=== PATIENT | male | born 1990 | race Caucasian/White ===

== ENCOUNTER 2016-08-03 08:53 | Inpatient (IN) | payer OTHER ==
[2016-08-03 09:14] VITALS: BMI 24.0
--- NOTE | 2016-08-03 09:45 | PN ---
Xital Signs Vital Signs: Vital Signs - 24 hr 08/03/16 09:12 Temperature 97.7 F Pulse Rate 101 H Respiratory 18 Rate Blood Pressure 125/71 COWS - Scale Resting Pulse: 2= [place] 101-120 Sweatin= Chills/Flushing Restless Observation: 1= Difficult to Sit Still Pupil Size: 0= Normal to Room Light Bone or Joint Aches: 2= Severe Diffuse Aches Runny Nose/ Eye Tearin= Runny Nose/Eyes GI Upset > 30mins: 2= Nausea/Diarrhea Tremor Observation: 2= Slight Tremor Visible Yawning Observation: 1= 1-2x During Session Anxiety or Irritability: 2=Irritable/Anxious Goose Flesh Skin: 0=Smooth Skin COWS Score: 15 Medical/Surgical History - Patient Medical History Hx Anemia: No Hx Asthma: No Hx Chronic Obstructive Pulmonary Disease (COPD): No Hx Cancer: No Hx Cardiac Disorders: No Hx Congestive Heart Failure: No Hx Hypertension: No Hx Hypercholesterolemia: No Hx Pacemaker: No HX Cerebrovascular Accident: No Hx Seizures: No Hx Dementia: No Hx Diabetes: No Hx Gastrointestinal Disorders: No Hx Liver Disease: No Hx Genitourinary Disorders: No Hx Sexually Transmitted Disorders: No Hx Renal Disease (ESRD): No Hx Thyroid Disease: No Hx Human Immunodeficiency Virus (HIV): No (2012 last ) Hx Hepatitis C: No Hx Depression: No Hx Suicide Attempt: No Hx Bipolar Disorder: No Hx Schizophrenia: No - Patient Surgical History Past Surgical History: Yes Hx Orthopedic Surgery: Yes (RECONSTRUCTION LT [id number]) BHS Breath Alcohol Content Breath Alcohol Content: 0 Urine Drug Screen - Results Drug Screen Negative: No Urine Drug Screen Results: THC-Marijuana, OPI-Opiates, MDMA-Ecstasy
--- NOTE | 2016-08-03 09:52 | HP ---
COWS - Scale Resting Pulse: 2= [place] 101-120 Sweatin= Chills/Flushing Restless Observation: 1= Difficult to Sit Still Pupil Size: 0= Normal to Room Light Bone or Joint Aches: 2= Severe Diffuse Aches Runny Nose/ Eye Tearin= Runny Nose/Eyes GI Upset > 30mins: 2= Nausea/Diarrhea Tremor Observation: 2= Slight Tremor Visible Yawning Observation: 1= 1-2x During Session Anxiety or Irritability: 2=Irritable/Anxious Goose Flesh Skin: 0=Smooth Skin COWS Score: 15 Admission ROS S - HPI Chief Complaint: "My life has become unmanageable because I have been using." Allergies/Adverse Reactions: Allergies Allergy/AdvReac Type Severity Reaction Status Date / Time No Known Allergies Allergy Verified 08/03/16 09:47 History of Present Illness: Pt. is a 26 YO male here to detox from Heroin. Pt.'s last Detox admission to [facility] was in 2013. Pt. also reports intermittently using alcohol and Marijuana. Exam Limitations: No Limitations - Ebola screening Have you traveled outside of the country in the last 21 days: No Have you had contact with anyone from an Ebola affected area: No Have you been sick,other than usual withdrawal symptoms: No Do you have a fever: No - Review of Systems Constitutional: Chills, Diaphoresis, Fever, Loss of Appetite, Malaise, Night Sweats, Changes in sleep, Unintentional Wgt. Loss (Pt. has lost 10-15 lbs. over the last 6 months.) EENT: reports: Tearing, Nose Congestion, Sinus Pressure Respiratory: reports: No Symptoms reported Cardiac: reports: No Symptoms Reported GI: reports: Diarrhea, Poor Appetite : reports: No Symptoms Reported Musculoskeletal: reports: Muscle Pain, Joint Stiffness Integumentary: reports: No Symptoms Reported Neuro: reports: Tremors Endocrine: reports: No Symptoms Reported Hematology: reports: No Symptoms Reported Psychiatric: reports: Judgement Intact, Mood/Affect Appropiate, Orientated x3, Anxious, Depressed Other Systems: Reviewed and Negative Patient History - Patient Medical History Hx Anemia: No Hx Asthma: No Hx Chronic Obstructive Pulmonary Disease (COPD): No Hx Cancer: No Hx Cardiac Disorders: No Hx Congestive Heart Failure: No Hx Hypertension: No Hx Hypercholesterolemia: No Hx Pacemaker: No HX Cerebrovascular Accident: No Hx Seizures: No Hx Dementia: No Hx Diabetes: No Hx Gastrointestinal Disorders: No Hx Liver Disease: No Hx Genitourinary Disorders: No Hx Sexually Transmitted Disorders: No Hx Renal Disease (ESRD): No Hx Thyroid Disease: No Hx Human Immunodeficiency Virus (HIV): No (Last Tested: NEGATIVE.) Hx Hepatitis C: No (Last Tested: NEGATIVE.) Hx Depression: Yes (No previous Treatment or Counseling.) Hx Suicide Attempt: No (PATIENT DENIES CURRENT SI / HI.) Hx Bipolar Disorder: No Hx Schizophrenia: No - Patient Surgical History Past Surgical History: Yes Hx Neurologic Surgery: No Hx Cataract Extraction: No Hx Cardiac Surgery: No Hx Lung Surgery: No Hx Breast Surgery: No Hx Breast Biopsy: No Hx Abdominal Surgery: No Hx Appendectomy: No Hx Cholecystectomy: No Hx Genitourinary Surgery: No Hx Orthopedic Surgery: Yes (RECONSTRUCTION LT ORFHS=[id number]) Anesthesia Reaction: No - PPD History Previous Implant?: Yes Documented Results: Negative w/o proof Implanted On Prior [facility] Admission?: Yes Date: 02/28/14 Results: 0 mm PPD to be Administered?: Yes - Reproductive History Patient is a Female of Child Bearing Age (11 -55 yrs old): No (PATIENT IS MALE.) - Smoking Cessation Smoking history: Current every day smoker Have you smoked in the past 12 months: Yes Aproximately how many cigarettes per day: 10 Cigars Per Day: 0 Hx Chewing Tobacco Use: No Initiated information on smoking cessation: Yes 'Breaking Loose' booklet given: 08/03/16 (GIVEN ON UNIT.) - Substance & Tx. History Hx Alcohol Use: Yes (Intermittently.) Hx Substance Use: Yes Substance Use Type: Heroin, Marijuana Hx Substance Use Treatment: Yes (Previous Detox admission at [facility] in 2013.) - Substances Abused Heroin Route: Injection Frequency: Daily Amount used: 5 - 10 BAGS. Age of first use: 23 Date of Last Use: 08/02/16 Alcohol Route: Oral Frequency: 3-6 times per week Amount used: 1 PINT LIQUOR. Age of first use: 19 Date of Last Use: 08/01/16 Marijuana/Hashish Route: Smoking Frequency: 1-2 times per week Amount used: 1 GRAM. Age of first use: 17 Date of Last Use: 07/27/16 Family Disease History - Family Disease History Family History: Denies Admission Physical Exam BHS - Vital Signs Vital Signs: Vital Signs - 24 hr 08/03/16 09:12 Temperature 97.7 F Pulse Rate 101 H Respiratory 18 Rate Blood Pressure 125/71 - Physical General Appearance: Yes: Nourished, Appropriately Dressed, Mild Distress, Tremorous, Sweating, Anxious HEENTM: Yes: Hearing grossly Normal, Normocephalic, Normal Voice, TERRELL, Pharynx Normal Respiratory: Yes: Chest Non-Tender, Lungs Clear, No Respiratory Distress Neck: Yes: No masses,lesions,Nodules, Supple, Trachea in good position Breast: Yes: Breast Exam Deferred Cardiology: Yes: Regular Rhythm, Regular Rate, S1, S2 Abdominal: Yes: Normal Bowel Sounds, Non Tender, Flat, Soft Genitourinary: Yes: Within Normal Limits Back: Yes: Normal Inspection Musculoskeletal: Yes: full range of Motion, Gait Steady Extremities: Yes: Normal Range of Motion, Tremors Neurological: Yes: Fully Oriented, Alert, Normal Mood/Affect, Normal Response Integumentary: Yes: Normal Color, Warm, Track Tom (Noted in Cubital Creases of Bilateral arms. No signs of Infection noted) Lymphatic: Yes: Within Normal Limits - Diagnostic (1) Nicotine dependence Current Visit: Yes Status: Chronic Qualifiers: Nicotine product type: cigarettes Substance use status: uncomplicated Qualified Code(s): F17.210 - Nicotine dependence, cigarettes, uncomplicated (2) Opioid dependence with withdrawal Current Visit: Yes Status: Acute (3) Alcohol use Current Visit: Yes Status: Acute (4) Cannabis dependence, uncomplicated Current Visit: Yes Status: Acute Cleared for Admission [facility] - Detox or Rehab [facility] Level of Care: Medically Managed Detox Regimen/Protocol: Methadone [facility] Breath Alcohol Content Breath Alcohol Content: 0 Urine Drug Screen - Results Drug Screen Negative: No Urine Drug Screen Results: THC-Marijuana, OPI-Opiates, MDMA-Ecstasy
[2016-08-03] MEDS ORDERED: ACETAMINOPHEN 325 MG TABLET (FP) PO PRN (10:24)
[2016-08-03] MEDS ORDERED: NICOTINE POLACRILEX 2 MG GUM BUC PRN (10:24)
[2016-08-03] MEDS ORDERED: guaiFENesin/D-METHORPHAN HB 10 ML UNIT-DOSE CUPS PO PRN (10:24)
[2016-08-03] MEDS ORDERED: P-EPHED 60MG/TRIPROLIDI 2.5MG TABLET PO PRN (10:24)
[2016-08-03] MEDS ORDERED: IBUPROFEN 400 MG TABLET (FP) PO PRN (10:24)
[2016-08-03] MEDS ORDERED: MAGNESIUM HYDROX 2400MG/30ML ORAL SUSPENSION 30 ML CUP PO PRN (10:24)
[2016-08-03] MEDS ORDERED: MAG HYDROX/AL HYDROX/SIMETH 30 ML UNIT-DOSE CUP PO PRN (10:24)
[2016-08-03] MEDS ORDERED: LOPERAMIDE HCL 2 MG CAPSULE PO PRN (10:24)
[2016-08-03] MEDS ORDERED: MAGNESIUM CITRATE 300 ML BOTTLE PO PRN (10:24)
[2016-08-03] MEDS ORDERED: diphenhydrAMINE HCL 50 MG CAPSULE PO PRN (10:24)
[2016-08-03] MEDS ORDERED: MENTHOL/PHENOL 1 EACH UD MM PRN (10:24)
[2016-08-03] MEDS ORDERED: METHADONE HCL 10 MG TABLET (FOR DETOX USE ONLY) PO ONE ×2 (10:24→23:00)
[2016-08-03] MEDS ORDERED: BACITRACIN 30 GM TUBE TOPICAL OINTMENT TP SCH (10:45)
[2016-08-03] MEDS ORDERED: BACITRACIN 0.9 GM PACKET ONE (12:02)
[2016-08-03] MEDS: diazePAM 5 MG TABLET PO PRN ×3 (12:26→22:39)
[2016-08-03] MEDS: NICOTINE 14 MG/24 HOURS TOPICAL PATCH TD SCH (12:27)
[2016-08-03 19:22] LABS: URINE APPEARANCE CLEAR; URINE BILIRUBIN NEGATIVE (NEGATIVE); URINE COLOR YELLOW; URINE GLUCOSE (UA) NEGATIVE (NEGATIVE); URINE KETONE NEGATIVE (NEGATIVE); URINE LEUK ESTERASE NEGATIVE (NEGATIVE); URINE NITRITE NEGATIVE (NEGATIVE); URINE PROTEIN NEGATIVE (NEGATIVE); URINE UROBILINOGEN NEGATIVE E.U./dl (0.2-1.0)
[2016-08-03 19:42] LABS: URINE BLOOD 1+ (NEGATIVE)
[2016-08-03 19:44] LABS: URINE BACTERIA RARE /hpf (NONE SEEN); URINE MUCUS RARE; URINE RBC 13 /hpf (0-3); URINE WBC 1 /hpf (3-5)
[2016-08-03] MEDS: BACITRACIN 0.9 GM PACKET TP SCH (22:37)
[2016-08-03] MEDS: THIAMINE HCL 100 MG TABLET (FP) PO SCH (22:37)
[2016-08-04] MEDS: hydrOXYzine PAMOATE 50 MG CAPSULE (FP) PO PRN (02:15)
[2016-08-04] MEDS: diazePAM 5 MG TABLET PO PRN ×5 (05:35→23:01)
[2016-08-04 09:47] LABS: MCH 29.4 pg (25.7-33.7); MCHC 33.3 g/dl (32.0-35.9); MEAN CELL VOLUME 88.3 fl (80-96); MEAN PLT VOLUME 8.5 fl (7.5-11.1); PLATELET COUNT 208 K/MM3 (134-434); RDW 13.9 % (11.9-15.9); WHITE BLOOD COUNT 4.9 K/mm3 (4.0-10.0)
[2016-08-04] MEDS ORDERED: ONDANSETRON *ODT* 4 MG TABLET SL PRN (09:59)
[2016-08-04] MEDS ORDERED: METHADONE HCL 10 MG TABLET (FOR DETOX USE ONLY) PO ONE (10:00)
[2016-08-04 10:19] LABS: ALBUMIN 3.7 g/dl (3.4-5.0); ALK PHOS 107 U/L (45-117); ANION GAP 9 (8-16); BILIRUBIN,TOTAL 0.4 mg/dL (0.2-1.0); CALCIUM 9.1 mg/dL (8.5-10.1); CO2 28 mmol/L (21-32); CREATININE 0.8 mg/dL (0.7-1.3); GLUCOSE,RANDOM 76 mg/dL (74-106); SGOT/AST 15 U/L (15-37); SGPT/ALT 19 U/L (12-78); TOT PROT 7.1 g/dl (6.4-8.2)
[2016-08-04] MEDS ORDERED: ONDANSETRON *ODT* 4 MG TABLET SL ONE (10:23)
[2016-08-04] MEDS: PRENATAL VITAMINS W/ FOLIC ACID TABLET (FP) PO SCH (10:29)
[2016-08-04] MEDS: NICOTINE 14 MG/24 HOURS TOPICAL PATCH TD SCH (10:29)
[2016-08-04] MEDS: BACITRACIN 0.9 GM PACKET TP SCH ×2 (10:29→22:10)
--- NOTE | 2016-08-04 10:38 | EKG ---
Test Reason : Blood Pressure : / mmHG Vent. Rate : 077 BPM Atrial Rate : 077 BPM P-R Int : 142 ms QRS Dur : 106 ms QT Int : 382 ms P-R-T Axes : 062 077 043 degrees QTc Int : 432 ms NORMAL SINUS RHYTHM NORMAL ECG NO PREVIOUS ECGS AVAILABLE Confirmed by ISIDRO VELÁSQUEZ MD ([id number]) on 08/04/2016 10:38:16 AM Referred By: Confirmed By:ISIDRO VELÁSQUEZ MD
--- NOTE | 2016-08-04 11:16 | PN ---
BHS COWS - Scale Resting Pulse: 0= [place] 80 or Below Sweatin=Flushed/Facial Moisture Restless Observation: 1= Difficult to Sit Still Pupil Size: 0= Normal to Room Light Bone or Joint Aches: 2= Severe Diffuse Aches Runny Nose/ Eye Tearin= Runny Nose/Eyes GI Upset > 30mins: 2= Nausea/Diarrhea Tremor Observation of Outstretched Hands: 2= Slight Tremor Visible Yawning Observation: 1= 1-2x During Session Anxiety or Irritability: 2=Irritable/Anxious Goose Flesh Skin: 0=Smooth Skin COWS Score: 14 BHS Progress Note (SOAP) Subjective: SWEATING,INTERRUPTED SLEEP,RESTLESS,TREMORS,ANXIETY,MUSCLE ACHES/SPASM Objective: 08/04/16 11:15 Vital Signs - 8 hr 08/04/16 08/04/16 08/04/16 03:45 06:11 09:39 Temperature 97.0 F L 97.9 F Pulse Rate 63 78 Respiratory 18 16 18 Rate Blood Pressure 112/72 107/69 Laboratory Tests 08/03/16 08/04/16 08/04/16 18:50 06:30 06:30 WBC 4.9 RBC 4.61 Hgb 13.6 Hct 40.8 MCV 88.3 MCHC 33.3 RDW 13.9 Plt Count 208 MPV 8.5 Sodium 141 Potassium 4.6 Chloride 104 Carbon Dioxide 28 Anion Gap 9 BUN 12 Creatinine 0.8 D Creat Clearance w eGFR > 60 Random Glucose 76 D Calcium 9.1 Total Bilirubin 0.4 D AST 15 D ALT 19 Alkaline Phosphatase 107 Total Protein 7.1 Albumin 3.7 Urine Color Yellow Urine Appearance Clear Urine pH 6.0 Ur Specific [place] 1.030 Urine Protein Negative Urine Glucose (UA) Negative Urine Ketones Negative Urine Blood 1+ H Urine Nitrite Negative Urine Bilirubin Negative Urine Urobilinogen Negative Ur Leukocyte Esterase Negative Urine RBC 13 Urine WBC 1 Urine Bacteria Rare Urine Mucus Rare LABS NOTED Assessment: 08/04/16 11:15 WITHDRAWAL SX. Plan: CONTINUE DETOX
[2016-08-04 12:14] LABS: HIV 1 & 2 AB NEGATIVE; HIV 1 AGp24 NEGATIVE
--- NOTE | 2016-08-04 15:28 | CONSULT ---
[facility] Psychiatric Consult - Data Date of interview: 08/04/16 Admission source: [facility] Identifying data: Readmission to [facility] for this 26 y/o male seeking detox treatment on for heroin and marijuana dependence.Patient is single without children,domiciled,unemployed and reportedly deprived of any source of income. Substance Abuse History: - Smoking Cessation. Smoking history: Current every day smoker. Have you smoked in the past 12 months: Yes. Aproximately how many cigarettes per day: 10. Cigars Per Day: 0. Hx Chewing Tobacco Use: No. Initiated information on smoking cessation: Yes. 'Breaking Loose' booklet given : 08/03/16 (GIVEN ON UNIT.). - Substance & Tx. History. Hx Alcohol Use: Yes ( Intermittently.). Hx Substance Use: Yes. Substance Use Type: Heroin, Marijuana. Hx Substance Use Treatment: Yes (Previous Detox admission at [facility] in 2013.). - Substances Abused. Heroin. Route: Injection. Frequency: Daily. Amount used: 5 - 10 BAGS. Age of first use: 23. Date of Last Use: . Alcohol. Route: Oral. Frequency: 3-6 times per week. Amount used: 1 PINT LIQUOR. Age of first use: 19. Date of Last Use: 08/01/16. Marijuana /Hashish. Route: Smoking. Frequency: 1-2 times per week. Amount used: 1 GRAM. Age of first use: 17. Date of Last Use: 07/27/16. Discussed with patient in this interview.He aknowledges this pattern of substance use. Medical History: Consistent with surgical reconstruction of left thumb (2009). Psychiatric History: Patient denies. Physical/Sexual Abuse/Trauma History: Patient denies. Additional Comment: Urine Drug Screen Results: THC-Marijuana, OPI-Opiates, MDMA- Ecstasy.Noted. Mental Status Exam - Mental Status Exam Alert and Oriented to: Time, Place, Person Cognitive Function: Good Patient Appearance: Well Groomed Mood: Hopeful, Euthymic Affect: Appropriate, Normal Range Patient Behavior: Fatigued, Talkative, Appropriate, Cooperative Speech Pattern: Clear, Appropriate Voice Loudness: Normal Thought Process: Goal Oriented Thought Disorder: Not Present Hallucinations: Denies Suicidal Ideation: Denies Homicidal Ideation: Denies Insight/Judgement: Poor Sleep: Poorly, Difficulty falling asleep Appetite: Good Muscle strength/Tone: Normal Gait/Station: Normal Psychiatric Findings - Problem List ([place] 1, 2,3) (1) Alcohol dependence Current Visit: Yes Status: Acute (2) Cannabis dependence, uncomplicated Current Visit: Yes Status: Acute (3) Opioid dependence with withdrawal Current Visit: Yes Status: Acute (4) Nicotine dependence Current Visit: Yes Status: Acute Qualifiers: Nicotine product type: cigarettes Substance use status: uncomplicated Qualified Code(s): F17.210 - Nicotine dependence, cigarettes, uncomplicated (5) MDMA abuse Current Visit: Yes Status: Acute (6) Insomnia Current Visit: Yes Status: Acute - Initial Treatment Plan Initial Treatment Plan: Psychoeducation.Detoxification.Zolpidem 10 mg po hs prn.Patient is made aware of the risk of parasomnias.He agrees with this plan.Observation.
[2016-08-04] MEDS ORDERED: hydrOXYzine PAMOATE 50 MG CAPSULE (FP) PO SCH (22:00)
[2016-08-04] MEDS: ZOLPIDEM TARTRATE 10 MG TABLET (PARK CARE ONLY) PO PRN (22:10)
[2016-08-04] MEDS: THIAMINE HCL 100 MG TABLET (FP) PO SCH (22:11)
[2016-08-05] MEDS: hydrOXYzine PAMOATE 50 MG CAPSULE (FP) PO PRN ×2 (02:15→14:10)
[2016-08-05] MEDS: diazePAM 5 MG TABLET PO PRN ×4 (05:52→18:09)
[2016-08-05] MEDS ORDERED: METHADONE HCL 5 MG TABLET (FOR DETOX USE ONLY) PO ONE (10:00)
[2016-08-05] MEDS: BACITRACIN 0.9 GM PACKET TP SCH ×2 (10:06→22:07)
[2016-08-05] MEDS: PRENATAL VITAMINS W/ FOLIC ACID TABLET (FP) PO SCH (10:06)
[2016-08-05] MEDS: NICOTINE 14 MG/24 HOURS TOPICAL PATCH TD SCH (10:06)
--- NOTE | 2016-08-05 10:25 | PN ---
BHS COWS - Scale Resting Pulse: 0= [place] 80 or Below Sweatin=Flushed/Facial Moisture Restless Observation: 1= Difficult to Sit Still Pupil Size: 0= Normal to Room Light Bone or Joint Aches: 2= Severe Diffuse Aches GI Upset > 30mins: 2= Nausea/Diarrhea Tremor Observation of Outstretched Hands: 2= Slight Tremor Visible Yawning Observation: 1= 1-2x During Session Anxiety or Irritability: 2=Irritable/Anxious Goose Flesh Skin: 0=Smooth Skin BHS Progress Note (SOAP) Subjective: anxiety,sweating,interrupted sleep,muscle aches/spasm Objective: 08/05/16 10:24 Vital Signs - 8 hr 08/05/16 08/05/16 03:30 06:21 Temperature 97.6 F Pulse Rate 67 Respiratory 18 16 Rate Blood Pressure 109/70 Laboratory Tests 08/03/16 08/04/16 08/04/16 18:50 06:30 06:30 WBC 4.9 RBC 4.61 Hgb 13.6 Hct 40.8 MCV 88.3 MCHC 33.3 RDW 13.9 Plt Count 208 MPV 8.5 Sodium 141 Potassium 4.6 Chloride 104 Carbon Dioxide 28 Anion Gap 9 BUN 12 Creatinine 0.8 D Creat Clearance w eGFR > 60 Random Glucose 76 D Calcium 9.1 Total Bilirubin 0.4 D AST 15 D ALT 19 Alkaline Phosphatase 107 Total Protein 7.1 Albumin 3.7 Urine Color Yellow Urine Appearance Clear Urine pH 6.0 Ur Specific [place] 1.030 Urine Protein Negative Urine Glucose (UA) Negative Urine Ketones Negative Urine Blood 1+ H Urine Nitrite Negative Urine Bilirubin Negative Urine Urobilinogen Negative Ur Leukocyte Esterase Negative Urine RBC 13 Urine WBC 1 Urine Bacteria Rare Urine Mucus Rare RPR Titer HIV 1&2 Antibody Screen HIV P24 Antigen 08/04/16 08/04/16 06:30 06:30 WBC RBC Hgb Hct MCV MCHC RDW Plt Count MPV Sodium Potassium Chloride Carbon Dioxide Anion Gap BUN Creatinine Creat Clearance w eGFR Random Glucose Calcium Total Bilirubin AST ALT Alkaline Phosphatase Total Protein Albumin Urine Color Urine Appearance Urine pH Ur Specific [place] Urine Protein Urine Glucose (UA) Urine Ketones Urine Blood Urine Nitrite Urine Bilirubin Urine Urobilinogen Ur Leukocyte Esterase Urine RBC Urine WBC Urine Bacteria Urine Mucus RPR Titer Nonreactive HIV 1&2 Antibody Screen Negative HIV P24 Antigen Negative labs noted Assessment: 08/05/16 10:24 withdrawal sx. Plan: continue detox
[2016-08-05] MEDS: CYCLOBENZAPRINE HCL 10 MG TABLET (FP) PO SCH ×2 (14:11→22:07)
[2016-08-05] MEDS: ZOLPIDEM TARTRATE 10 MG TABLET (PARK CARE ONLY) PO PRN (22:07)
[2016-08-05] MEDS: THIAMINE HCL 100 MG TABLET (FP) PO SCH (22:07)
[2016-08-06] MEDS: diazePAM 5 MG TABLET PO PRN ×2 (00:53→05:57)
[2016-08-06] MEDS: CYCLOBENZAPRINE HCL 10 MG TABLET (FP) PO SCH ×3 (05:57→22:09)
[2016-08-06] MEDS ORDERED: METHADONE HCL 5 MG TABLET (FOR DETOX USE ONLY) PO ONE (10:00)
[2016-08-06] MEDS: BACITRACIN 0.9 GM PACKET TP SCH ×2 (10:26→22:09)
[2016-08-06] MEDS: PRENATAL VITAMINS W/ FOLIC ACID TABLET (FP) PO SCH (10:26)
[2016-08-06] MEDS: NICOTINE 14 MG/24 HOURS TOPICAL PATCH TD SCH (10:26)
[2016-08-06] MEDS: hydrOXYzine PAMOATE 50 MG CAPSULE (FP) PO PRN ×3 (11:12→22:11)
--- NOTE | 2016-08-06 17:39 | PN ---
BHS Progress Note (SOAP) Subjective: sweating,interrupted sleep,restless Objective: 08/06/16 17:36 Vital Signs - 8 hr 08/06/16 08/06/16 09:39 17:30 Temperature 95.5 F L 98 F Pulse Rate 75 71 Respiratory 16 20 Rate Blood Pressure 104/68 97/55 Laboratory Last Values WBC 4.9 K/mm3 (4.0-10.0) 08/04/16 06:30 RBC 4.61 M/mm3 (4.00-5.60) 08/04/16 06:30 Hgb 13.6 GM/dL (11.7-16.9) 08/04/16 06:30 Hct 40.8 % (35.4-49) 08/04/16 06:30 MCV 88.3 fl (80-96) 08/04/16 06:30 MCHC 33.3 g/dl (32.0-35.9) 08/04/16 06:30 RDW 13.9 % (11.9-15.9) 08/04/16 06:30 Plt Count 208 K/MM3 (134-434) 08/04/16 06:30 MPV 8.5 fl (7.5-11.1) 08/04/16 06:30 Sodium 141 mmol/L (136-145) 08/04/16 06:30 Potassium 4.6 mmol/L (3.5-5.1) 08/04/16 06:30 Chloride 104 mmol/L (98-107) 08/04/16 06:30 Carbon Dioxide 28 mmol/L (21-32) 08/04/16 06:30 Anion Gap 9 (8-16) 08/04/16 06:30 BUN 12 mg/dL (7-18) 08/04/16 06:30 Creatinine 0.8 mg/dL (0.7-1.3) D 08/04/16 06:30 Creat Clearance w eGFR > 60 (>60) 08/04/16 06:30 Random Glucose 76 mg/dL (74-106) D 08/04/16 06:30 Calcium 9.1 mg/dL (8.5-10.1) 08/04/16 06:30 Total Bilirubin 0.4 mg/dL (0.2-1.0) D 08/04/16 06:30 AST 15 U/L (15-37) D 08/04/16 06:30 ALT 19 U/L (12-78) 08/04/16 06:30 Alkaline Phosphatase 107 U/L (45-117) 08/04/16 06:30 Total Protein 7.1 g/dl (6.4-8.2) 08/04/16 06:30 Albumin 3.7 g/dl (3.4-5.0) 08/04/16 06:30 Urine Color Yellow 08/03/16 18:50 Urine Appearance Clear 08/03/16 18:50 Urine pH 6.0 (5.0-8.0) 08/03/16 18:50 Ur Specific [place] 1.030 (1.001-1.035) 08/03/16 18:50 Urine Protein Negative (NEGATIVE) 08/03/16 18:50 Urine Glucose (UA) Negative (NEGATIVE) 08/03/16 18:50 Urine Ketones Negative (NEGATIVE) 08/03/16 18:50 Urine Blood 1+ (NEGATIVE) H 08/03/16 18:50 Urine Nitrite Negative (NEGATIVE) 08/03/16 18:50 Urine Bilirubin Negative (NEGATIVE) 08/03/16 18:50 Urine Urobilinogen Negative E.U./dl (0.2-1.0) 08/03/16 18:50 Ur Leukocyte Esterase Negative (NEGATIVE) 08/03/16 18:50 Urine RBC 13 /hpf (0-3) 08/03/16 18:50 Urine WBC 1 /hpf (3-5) 08/03/16 18:50 Urine Bacteria Rare /hpf (NONE SEEN) 08/03/16 18:50 Urine Mucus Rare 08/03/16 18:50 RPR Titer Nonreactive (NONREACTIVE) 08/04/16 06:30 HIV 1&2 Antibody Screen Negative 08/04/16 06:30 HIV P24 Antigen Negative 08/04/16 06:30 labs noted Assessment: 08/06/16 17:38 withdrawal sx. Plan: continue detox
[2016-08-06] MEDS: ZOLPIDEM TARTRATE 10 MG TABLET (PARK CARE ONLY) PO PRN (22:09)
[2016-08-06] MEDS: THIAMINE HCL 100 MG TABLET (FP) PO SCH (22:09)
[2016-08-07] MEDS: hydrOXYzine PAMOATE 50 MG CAPSULE (FP) PO PRN ×5 (05:56→22:38)
[2016-08-07] MEDS: CYCLOBENZAPRINE HCL 10 MG TABLET (FP) PO SCH ×3 (05:56→22:38)
[2016-08-07] MEDS ORDERED: METHADONE HCL 10 MG TABLET (FOR DETOX USE ONLY) PO ONE (10:00)
[2016-08-07] MEDS: PRENATAL VITAMINS W/ FOLIC ACID TABLET (FP) PO SCH (10:25)
[2016-08-07] MEDS: NICOTINE 14 MG/24 HOURS TOPICAL PATCH TD SCH (10:25)
[2016-08-07] MEDS: BACITRACIN 0.9 GM PACKET TP SCH ×2 (10:25→22:36)
[2016-08-07] MEDS ORDERED: IBUPROFEN 600 MG TABLET (FP) PO ONE (10:33)
[2016-08-07] MEDS ORDERED: IBUPROFEN 600 MG TABLET (FP) PO PRN (10:33)
--- NOTE | 2016-08-07 10:36 | PN ---
BHS Progress Note (SOAP) Subjective: SWEATING,BACK PAIN,INTERRUPTED SLEEP,RESTLESS. Objective: 08/07/16 10:35 Vital Signs - 8 hr 08/07/16 08/07/16 08/07/16 03:29 06:11 09:20 Temperature 97.7 F 96.3 F L Pulse Rate 71 83 Respiratory 20 16 18 Rate Blood Pressure 109/65 114/68 Laboratory Tests 08/03/16 08/04/16 08/04/16 18:50 06:30 06:30 WBC 4.9 RBC 4.61 Hgb 13.6 Hct 40.8 MCV 88.3 MCHC 33.3 RDW 13.9 Plt Count 208 MPV 8.5 Sodium 141 Potassium 4.6 Chloride 104 Carbon Dioxide 28 Anion Gap 9 BUN 12 Creatinine 0.8 D Creat Clearance w eGFR > 60 Random Glucose 76 D Calcium 9.1 Total Bilirubin 0.4 D AST 15 D ALT 19 Alkaline Phosphatase 107 Total Protein 7.1 Albumin 3.7 Urine Color Yellow Urine Appearance Clear Urine pH 6.0 Ur Specific [place] 1.030 Urine Protein Negative Urine Glucose (UA) Negative Urine Ketones Negative Urine Blood 1+ H Urine Nitrite Negative Urine Bilirubin Negative Urine Urobilinogen Negative Ur Leukocyte Esterase Negative Urine RBC 13 Urine WBC 1 Urine Bacteria Rare Urine Mucus Rare RPR Titer HIV 1&2 Antibody Screen HIV P24 Antigen 08/04/16 08/04/16 06:30 06:30 WBC RBC Hgb Hct MCV MCHC RDW Plt Count MPV Sodium Potassium Chloride Carbon Dioxide Anion Gap BUN Creatinine Creat Clearance w eGFR Random Glucose Calcium Total Bilirubin AST ALT Alkaline Phosphatase Total Protein Albumin Urine Color Urine Appearance Urine pH Ur Specific [place] Urine Protein Urine Glucose (UA) Urine Ketones Urine Blood Urine Nitrite Urine Bilirubin Urine Urobilinogen Ur Leukocyte Esterase Urine RBC Urine WBC Urine Bacteria Urine Mucus RPR Titer Nonreactive HIV 1&2 Antibody Screen Negative HIV P24 Antigen Negative LABS NOTED Assessment: 08/07/16 10:35 WITHDRAWAL SX. Plan: CONTINUE DETOX
[2016-08-07] MEDS: cloNIDine HCL 0.1 MG TABLET PO SCH ×2 (11:21→22:38)
[2016-08-07] MEDS: THIAMINE HCL 100 MG TABLET (FP) PO SCH (22:38)
[2016-08-08] MEDS: hydrOXYzine PAMOATE 50 MG CAPSULE (FP) PO PRN ×2 (04:48→10:27)
[2016-08-08] MEDS: CYCLOBENZAPRINE HCL 10 MG TABLET (FP) PO SCH (06:00)
[2016-08-08] MEDS ORDERED: METHADONE HCL 5 MG TABLET (FOR DETOX USE ONLY) PO ONE (06:00)
[2016-08-08 09:59] VITALS: BP 104/64; PULSE 95; TEMP 96.4
[2016-08-08] MEDS: PRENATAL VITAMINS W/ FOLIC ACID TABLET (FP) PO SCH (10:27)
[2016-08-08] MEDS: cloNIDine HCL 0.1 MG TABLET PO SCH (10:27)
[2016-08-08] MEDS: BACITRACIN 0.9 GM PACKET TP SCH (10:27)
[2016-08-08] MEDS: NICOTINE 14 MG/24 HOURS TOPICAL PATCH TD SCH (10:28)
--- NOTE | 2016-08-08 10:59 | PN ---
BHS Progress Note (SOAP) Subjective: no complaints Objective: 08/08/16 10:58 Vital Signs - 8 hr 08/08/16 08/08/16 08/08/16 03:36 06:23 09:58 Temperature 96.3 F L 96.4 F L Pulse Rate 78 95 H Respiratory 18 16 18 Rate Blood Pressure 104/67 104/64 Laboratory Tests 08/03/16 08/04/16 08/04/16 18:50 06:30 06:30 WBC 4.9 RBC 4.61 Hgb 13.6 Hct 40.8 MCV 88.3 MCHC 33.3 RDW 13.9 Plt Count 208 MPV 8.5 Sodium 141 Potassium 4.6 Chloride 104 Carbon Dioxide 28 Anion Gap 9 BUN 12 Creatinine 0.8 D Creat Clearance w eGFR > 60 Random Glucose 76 D Calcium 9.1 Total Bilirubin 0.4 D AST 15 D ALT 19 Alkaline Phosphatase 107 Total Protein 7.1 Albumin 3.7 Urine Color Yellow Urine Appearance Clear Urine pH 6.0 Ur Specific [place] 1.030 Urine Protein Negative Urine Glucose (UA) Negative Urine Ketones Negative Urine Blood 1+ H Urine Nitrite Negative Urine Bilirubin Negative Urine Urobilinogen Negative Ur Leukocyte Esterase Negative Urine RBC 13 Urine WBC 1 Urine Bacteria Rare Urine Mucus Rare RPR Titer HIV 1&2 Antibody Screen HIV P24 Antigen 08/04/16 08/04/16 06:30 06:30 WBC RBC Hgb Hct MCV MCHC RDW Plt Count MPV Sodium Potassium Chloride Carbon Dioxide Anion Gap BUN Creatinine Creat Clearance w eGFR Random Glucose Calcium Total Bilirubin AST ALT Alkaline Phosphatase Total Protein Albumin Urine Color Urine Appearance Urine pH Ur Specific [place] Urine Protein Urine Glucose (UA) Urine Ketones Urine Blood Urine Nitrite Urine Bilirubin Urine Urobilinogen Ur Leukocyte Esterase Urine RBC Urine WBC Urine Bacteria Urine Mucus RPR Titer Nonreactive HIV 1&2 Antibody Screen Negative HIV P24 Antigen Negative Assessment: 08/08/16 10:59 completed detox, medically stable Plan: d/c today, f/u PCP for medical care post discharge
--- NOTE | 2016-08-08 11:03 | DS ---
[facility] Detox Discharge Summary Admission Date: 08/03/16 Discharge Date: 08/08/16 - History Present History: Alcohol Dependence, Cannabis Dependence Pertinent Past History: anxiety, depression, insomnia, nicotien dependence with withdrawal sx - Physical Exam Results Vital Signs: Vital Signs Temperature 96.4 F L 08/08/16 09:58 Pulse Rate 95 H 08/08/16 09:58 Respiratory Rate 18 08/08/16 09:58 Blood Pressure 104/64 08/08/16 09:58 O2 Sat by Pulse Oximetry (%) Pertinent Admission Physical Exam Findings: withdrawal sx - Treatment Hospital Course: Detox Protocol Followed, Detoxed Safely, Responded well, Discharged Condition Good, Rehab Referral Accepted Patient has Accepted a Rehab Referral to: Yes - Medication Discharge Medications: Ambulatory Orders NK [No Known Home Medication] 08/03/16 - Diagnosis (1) Alcohol dependence Current Visit: Yes Status: Chronic Qualifiers: Substance use status: in withdrawal (2) Cannabis dependence, uncomplicated Current Visit: Yes Status: Acute (3) Insomnia Current Visit: Yes Status: Acute (4) MDMA abuse Current Visit: Yes Status: Acute (5) Nicotine dependence Current Visit: Yes Status: Acute Qualifiers: Nicotine product type: cigarettes Substance use status: uncomplicated Qualified Code(s): F17.210 - Nicotine dependence, cigarettes, uncomplicated (6) Opioid dependence with withdrawal Current Visit: Yes Status: Chronic (7) Cannabis dependence Current Visit: Yes Status: Chronic (8) Depression Current Visit: Yes Status: Acute (9) Weight decreased Current Visit: Yes Status: Acute - AMA Did Patient Leave Against Medical Advice: No
== END 2016-08-08 12:16 | disposition other institution (70) | DRG 773 ==
LOC: YASAS 08:53 → Y3N 10:40
PROVIDERS: ADMIT Internal Medicine; ATTEND Internal Medicine
PROC: HZ2ZZZZ Detoxification Services for Substance Abuse Treatment (ICD-10-PCS; principal; 2016-08-08)
DX: F11.23 Opioid dependence with withdrawal (principal); F10.20 Alcohol dependence, uncomplicated; F14.20 Cocaine dependence, uncomplicated; F12.20 Cannabis dependence, uncomplicated; F15.10 Other stimulant abuse, uncomplicated; G47.00 Insomnia, unspecified; R63.4 Abnormal weight loss; Z68.24 Body mass index [BMI] 24.0-24.9, adult
CPT/HCPCS: 36415; 80053; 81003; 81015; 85027; 86593; 87389; 93005; 93010

== ENCOUNTER 2016-08-08 12:30 | Inpatient (IN) | payer OTHER ==
--- NOTE | 2016-08-08 14:25 | HP ---
Psychiatrist Admission - Data Date of interview: 08/08/16 Admission source: 3N Identifying data: This is the first 5N inpatient rehabilitation admission for this 26 year old male who is single without children,domiciled, unemployed and reportedly deprived of any source of income. Medical History: reconstruction of left thumb, smokes cigarettes 10 a day. Psychiatric History: Patient denies history of psychiatric treatment, byt reports he is anxious, unable to sleep and feeling sad, he was seen by and Mitzi recommended for insomnia. Physical/Sexual Abuse/Trauma History: Patient denies history of sexual, physical and verbal abuse. Vital Signs: Vital Signs - 24 hr 08/08/16 13:22 Temperature 97.6 F Pulse Rate 84 Respiratory 18 Rate Blood Pressure 118/65 Allergies/Adverse Reactions: Allergies Allergy/AdvReac Type Severity Reaction Status Date / Time No Known Allergies Allergy Verified 08/08/16 13:20 Date of last physical exam: 08/03/16 Concur with the findings of this exam: Yes - Substance Abuse/Tx History Hx Alcohol Use: Yes (1 pint of liquor 1-3 times a week) Substance Use Type: Heroin Hx Substance Use Treatment: Yes - Admission Criteria Previous failed treatment: Yes Poor recovery environment: Yes Comorbidities: Yes Lacks judgement: Yes Mental Status Exam - Mental Status Exam Alert and Oriented to: Time, Place, Person Cognitive Function: Grossly Intact Patient Appearance: Well Groomed Mood: Sad, Anxious Affect: Mood Congruent Patient Behavior: Appropriate, Cooperative Speech Pattern: Clear, Appropriate Voice Loudness: Normal Thought Process: Goal Oriented Thought Disorder: Not Present Hallucinations: Denies Suicidal Ideation: Denies Homicidal Ideation: Denies Insight/Judgement: Fair Sleep: Poorly, Difficulty falling asleep Appetite: Fair Muscle strength/Tone: Normal Gait/Station: Normal Psychiatric Findings - Problem List (Herman 1, 2,3) (1) Insomnia Current Visit: No Status: Acute (2) Nicotine dependence Current Visit: No Status: Acute Qualifiers: Nicotine product type: cigarettes Substance use status: uncomplicated Qualified Code(s): F17.210 - Nicotine dependence, cigarettes, uncomplicated (3) Alcohol dependence Current Visit: No Status: Chronic Qualifiers: Substance use status: in withdrawal (4) Opioid dependence Current Visit: Yes Status: Acute (5) Substance induced mood disorder Current Visit: Yes Status: Acute (6) Substance-induced sleep disorder Current Visit: Yes Status: Acute - Initial Treatment Plan Initial Treatment Plan: Discussed indications/properteis of Remeron , patient agreed to start tx, Vistail 50 mg [po q 4 hrs PRN for anxiety, willl continue to monitor progress.
[2016-08-08] MEDS ORDERED: diphenhydrAMINE HCL 50 MG CAPSULE PO PRN (14:27)
[2016-08-08] MEDS ORDERED: IBUPROFEN 400 MG TABLET (FP) PO PRN (14:27)
[2016-08-08] MEDS ORDERED: ACETAMINOPHEN 325 MG TABLET (FP) PO PRN (14:27)
[2016-08-08] MEDS ORDERED: guaiFENesin/D-METHORPHAN HB 10 ML UNIT-DOSE CUPS PO PRN (14:27)
[2016-08-08] MEDS ORDERED: MENTHOL/PHENOL 1 EACH UD MM PRN (14:27)
[2016-08-08] MEDS ORDERED: MAG HYDROX/AL HYDROX/SIMETH 30 ML UNIT-DOSE CUP PO PRN (14:27)
[2016-08-08] MEDS ORDERED: MAGNESIUM HYDROX 2400MG/30ML ORAL SUSPENSION 30 ML CUP PO PRN (14:27)
[2016-08-08] MEDS ORDERED: LOPERAMIDE HCL 2 MG CAPSULE PO PRN (14:27)
[2016-08-08] MEDS ORDERED: P-EPHED 60MG/TRIPROLIDI 2.5MG TABLET PO PRN (14:27)
[2016-08-08] MEDS ORDERED: MAGNESIUM CITRATE 300 ML BOTTLE PO PRN (14:27)
--- NOTE | 2016-08-08 16:22 | HP ---
[facility] Rehab Assess/Revision - Admission History Admitted to Rehab from: [facility] Date of Admission to Rehab: 08/08/16 - Vital signs Vital Signs: Vital Signs Period Temp Pulse Resp BP Sys/Sanders Pulse Ox Last 24 Hr 97.6 F 84 18 118/65 - Findings Detox History & Physical reviewed: Yes Concur with findings: Yes Comments/Additional Findings: transferred from detox to rehab admission as per protocol
[2016-08-08] MEDS: hydrOXYzine PAMOATE 50 MG CAPSULE (FP) PO PRN (18:14)
[2016-08-08] MEDS: MIRTAZAPINE 15 MG TABLET (FP) PO SCH (21:45)
[2016-08-08] MEDS: THIAMINE HCL 100 MG TABLET (FP) PO SCH (21:45)
[2016-08-09] MEDS: hydrOXYzine PAMOATE 50 MG CAPSULE (FP) PO PRN ×4 (06:43→21:31)
[2016-08-09] MEDS: PRENATAL VITAMINS W/ FOLIC ACID TABLET (FP) PO SCH (09:51)
[2016-08-09] MEDS: NICOTINE 14 MG/24 HOURS TOPICAL PATCH TD SCH (12:41)
[2016-08-09] MEDS: THIAMINE HCL 100 MG TABLET (FP) PO SCH (21:29)
[2016-08-09] MEDS: MIRTAZAPINE 15 MG TABLET (FP) PO SCH (21:31)
[2016-08-10] MEDS: hydrOXYzine PAMOATE 50 MG CAPSULE (FP) PO PRN ×3 (06:56→19:56)
[2016-08-10] MEDS: PRENATAL VITAMINS W/ FOLIC ACID TABLET (FP) PO SCH (10:14)
[2016-08-10] MEDS: NICOTINE 14 MG/24 HOURS TOPICAL PATCH TD SCH (10:14)
[2016-08-10] MEDS: THIAMINE HCL 100 MG TABLET (FP) PO SCH (21:32)
[2016-08-10] MEDS: MIRTAZAPINE 15 MG TABLET (FP) PO SCH (21:32)
[2016-08-11 06:59] VITALS: BP 118/72; PULSE 98; TEMP 98.2
[2016-08-11] MEDS: NICOTINE 14 MG/24 HOURS TOPICAL PATCH TD SCH (10:06)
[2016-08-11] MEDS: PRENATAL VITAMINS W/ FOLIC ACID TABLET (FP) PO SCH (10:06)
--- NOTE | 2016-08-11 13:44 | PN ---
Psychiatric Progress Note Vital Signs: Vital Signs Period Temp Pulse Resp BP Sys/Sanders Pulse Ox Last 24 Hr 98.2 F 71-98 13-18 118/72 Date of Session: 08/11/16 Chief Complaint:: discharge visit HPI: Patient addressing alcohol, opioid, nicotine dependende comorbid substance induced sleep and mood disorder. ROS: WNL. Current Medications: Active Medications Generic Name Dose Route Start Last Admin Trade Name Freq PRN Reason Stop Dose Admin Acetaminophen 650 mg 08/08/16 14:27 Tylenol - PO Q4H PRN PAIN Al Hydroxide/Mg Hydroxide 30 ml 08/08/16 14:27 Mylanta Oral Suspension - PO Q6H PRN DYSPEPSIA Diphenhydramine HCl 50 mg 08/08/16 14:27 08/09/16 01:11 Benadryl - PO 50 mg HSMR1 PRN Administration INSOMNIA Eucalyptus/Menthol/Phenol/Sorbitol 1 each 08/08/16 14:27 Cepastat Lozenge - MM Q4H PRN SORE THROAT Guaifenesin 10 ml 08/08/16 14:27 Robitussin Dm - PO Q6H PRN COUGH Hydroxyzine Pamoate 50 mg 08/08/16 14:27 08/10/16 19:56 Vistaril - PO 50 mg Q4H PRN Administration AGITATION Ibuprofen 400 mg 08/08/16 14:27 Motrin - PO Q6H PRN SEVERE PAIN Loperamide HCl 4 mg 08/08/16 14:27 Imodium - PO Q6H PRN DIARRHEA Magnesium Citrate 300 ml 08/08/16 14:27 Citroma - PO Q48H PRN CONSTIPATION Magnesium Hydroxide 30 ml 08/08/16 14:27 Milk Of Magnesia - PO DAILY PRN CONSTIPATION Mirtazapine 15 mg 08/08/16 22:00 08/10/16 21:32 Remeron - PO 15 mg HS KARI Administration Nicotine 14 mg 08/09/16 11:15 08/11/16 10:06 Nicoderm Patch - TD Not Given DAILY KARI Multivit/Folic Acid/Iron 1 tab 08/09/16 10:00 08/11/16 10:06 Vitamins ([facility]) - PO 1 tab DAILY KARI Administration Pseudoephedrine/Triprolidine 1 combo 08/08/16 14:27 Actifed - PO TID PRN NASAL CONGESTION Thiamine HCl 100 mg 08/08/16 22:00 08/10/16 21:32 Vitamin B1 - PO 100 mg HS KARI Administration Current Side Effect: No Lab tests ordered: No Lab tests reviewed: Yes Provider note:: Patient decided that he is leaving treatment AMA. Met with the patient to process his decision, who reported that he will want to go to [facility], encouraged patient to complete rehab, but insisted upon leaving, patient stable for discharge, he refused scripts for remeron. Total face to face time:: 20 Mental Status Exam - Mental Status Exam Alert and Oriented to: Time, Place, Person Cognitive Function: Good Patient Appearance: Well Groomed Affect: Appropriate, Normal Range Patient Behavior: Appropriate, Cooperative Speech Pattern: Clear, Appropriate Voice Loudness: Normal Thought Process: Intact, Goal Oriented Thought Disorder: Not Present Hallucinations: Denies Suicidal Ideation: Denies Homicidal Ideation: Denies Insight/Judgement: Fair Sleep: Fair Appetite: Fair Muscle strength/Tone: Normal Gait/Station: Normal Psychiatric Treatment Plan - Problem List (2) Nicotine dependence Qualifiers: Nicotine product type: cigarettes Substance use status: uncomplicated Qualified Code(s): F17.210 - Nicotine dependence, cigarettes, uncomplicated (3) Alcohol dependence Qualifiers: Substance use status: in withdrawal
== END 2016-08-11 13:35 | disposition left against medical advice (07) | DRG 770 ==
LOC: YASAS 12:30 → Y5N 12:31
PROVIDERS: ADMIT Psychiatry & Neurology Psychiatry; ATTEND Psychiatry & Neurology Psychiatry
PROC: HZ42ZZZ Group Counseling for Substance Abuse Treatment, Cognitive-Behavioral (ICD-10-PCS; principal; 2016-08-11)
DX: F11.20 Opioid dependence, uncomplicated (principal); F10.230 Alcohol dependence with withdrawal, uncomplicated; F17.210 Nicotine dependence, cigarettes, uncomplicated; F19.24 Other psychoactive substance dependence with psychoactive substance-induced mood disorder; F19.282 Other psychoactive substance dependence with psychoactive substance-induced sleep disorder; G47.00 Insomnia, unspecified

== ENCOUNTER 2021-04-28 14:36 | Inpatient (IN) | payer OTHER ==
[2021-04-28 15:31] VITALS: BMI 27.3
[2021-04-28] MEDS ORDERED: IBUPROFEN 400 MG TABLET (FP) PO PRN (18:24)
[2021-04-28] MEDS ORDERED: ACETAMINOPHEN 325 MG TABLET (FP) PO PRN ×2 (18:24)
[2021-04-28] MEDS ORDERED: NICOTINE POLACRILEX 2 MG GUM BUC PRN (18:24)
[2021-04-28] MEDS ORDERED: MENTHOL/PHENOL 1 EACH UD MM PRN (18:24)
[2021-04-28] MEDS ORDERED: MAG HYDROX/AL HYDROX/SIMETH 30 ML UNIT-DOSE CUP PO PRN (18:24)
[2021-04-28] MEDS ORDERED: MAGNESIUM CITRATE 300 ML BOTTLE PO PRN (18:24)
[2021-04-28] MEDS ORDERED: ONDANSETRON *ODT* 4 MG TABLET SL PRN (18:24)
[2021-04-28] MEDS ORDERED: cloNIDine HCL 0.1 MG TABLET PO PRN (18:24)
[2021-04-28] MEDS ORDERED: MAGNESIUM HYDROX 2400MG/30ML ORAL SUSPENSION 30 ML CUP PO PRN (18:24)
[2021-04-28] MEDS ORDERED: methaDONE HCL 10 MG TABLET (FOR DETOX USE ONLY) PO ONE (18:24)
[2021-04-28] MEDS ORDERED: BISMUTH SUBSALICYLATE 524 MG/30 ML PO PRN (18:24)
[2021-04-28] MEDS: THIAMINE HCL 100 MG TABLET (FP) PO SCH (22:14)
[2021-04-28] MEDS: MELATONIN 5 MG TABLETS PO SCH (22:14)
[2021-04-28] MEDS: diazePAM 5 MG TABLET PO SCH (22:18)
[2021-04-29] MEDS: diazePAM 5 MG TABLET PO SCH ×4 (05:18→22:23)
[2021-04-29] MEDS: METHOCARBAMOL 500 MG TABLET PO PRN ×2 (05:19→22:23)
[2021-04-29] MEDS ORDERED: methaDONE HCL 10 MG TABLET (FOR DETOX USE ONLY) ONE (08:53)
[2021-04-29] MEDS: NICOTINE 14 MG/24 HOURS TOPICAL PATCH TD SCH (10:19)
[2021-04-29] MEDS: PRENATAL VITAMINS W/ FOLIC ACID TABLET (FP) PO SCH (10:19)
[2021-04-29 11:04] LABS: MCH 31.4 pg (25.7-33.7); MCHC 33.2 g/dl (32.0-35.9); MEAN CELL VOLUME 94.5 fl (80-96); MEAN PLT VOLUME 9.5 fl (7.5-11.1); PLATELET COUNT 283 10^3/uL (134-434); RBC 4.13 M/mm3 (4.00-5.60); RDW 14.3 % (11.9-15.9); WHITE BLOOD COUNT 5.1 K/mm3 (4.0-10.0)
[2021-04-29 11:08] LABS: ALBUMIN 2.9 g/dl (3.4-5.0); BLOOD UREA NITROGEN 10.3 mg/dL (7-18); CALCIUM 8.9 mg/dL (8.5-10.1)
[2021-04-29 11:12] LABS: CREATININE 0.6 mg/dL (0.55-1.3)
[2021-04-29 11:13] LABS: BILIRUBIN,TOTAL 0.4 mg/dL (0.2-1)
[2021-04-29] MEDS: diazePAM 5 MG TABLET PO PRN (12:35)
[2021-04-29] MEDS: MELATONIN 5 MG TABLETS PO SCH (22:23)
[2021-04-29] MEDS: THIAMINE HCL 100 MG TABLET (FP) PO SCH (22:23)
[2021-04-30] MEDS: diazePAM 5 MG TABLET PO SCH ×3 (05:29→22:27)
[2021-04-30] MEDS: METHOCARBAMOL 500 MG TABLET PO PRN ×3 (05:30→22:28)
[2021-04-30] MEDS ORDERED: methaDONE HCL 10 MG TABLET (FOR DETOX USE ONLY) PO ONE (10:00)
[2021-04-30] MEDS: NICOTINE 14 MG/24 HOURS TOPICAL PATCH TD SCH (10:15)
[2021-04-30] MEDS: PRENATAL VITAMINS W/ FOLIC ACID TABLET (FP) PO SCH (10:15)
[2021-04-30] MEDS: diazePAM 5 MG TABLET PO PRN ×2 (10:17→20:09)
[2021-04-30] MEDS: THIAMINE HCL 100 MG TABLET (FP) PO SCH (22:27)
[2021-04-30] MEDS: MELATONIN 5 MG TABLETS PO SCH (22:27)
[2021-05-01] MEDS: diazePAM 5 MG TABLET PO SCH ×2 (06:00→17:35)
[2021-05-01] MEDS ORDERED: methaDONE HCL 10 MG TABLET (FOR DETOX USE ONLY) ONE (09:40)
[2021-05-01] MEDS: PRENATAL VITAMINS W/ FOLIC ACID TABLET (FP) PO SCH (10:41)
[2021-05-01] MEDS: NICOTINE 14 MG/24 HOURS TOPICAL PATCH TD SCH (10:41)
[2021-05-01] MEDS: diazePAM 5 MG TABLET PO PRN ×2 (10:43→15:26)
[2021-05-01] MEDS: METHOCARBAMOL 500 MG TABLET PO PRN (22:21)
[2021-05-01] MEDS: THIAMINE HCL 100 MG TABLET (FP) PO SCH (22:21)
[2021-05-01] MEDS: MELATONIN 5 MG TABLETS PO SCH (22:21)
[2021-05-02] MEDS: METHOCARBAMOL 500 MG TABLET PO PRN ×2 (05:24→17:26)
[2021-05-02] MEDS ORDERED: diazePAM 5 MG TABLET PO ONE (06:00)
[2021-05-02] MEDS ORDERED: methaDONE HCL 10 MG TABLET (FOR DETOX USE ONLY) PO ONE (10:00)
[2021-05-02] MEDS: PRENATAL VITAMINS W/ FOLIC ACID TABLET (FP) PO SCH (10:20)
[2021-05-02] MEDS: NICOTINE 14 MG/24 HOURS TOPICAL PATCH TD SCH (11:07)
[2021-05-02] MEDS: diazePAM 5 MG TABLET PO PRN ×2 (12:40→20:25)
[2021-05-02] MEDS: THIAMINE HCL 100 MG TABLET (FP) PO SCH (22:24)
[2021-05-02] MEDS: MELATONIN 5 MG TABLETS PO SCH (22:24)
[2021-05-03 09:40] VITALS: BP 114/77; PULSE 84; TEMP 97.3
== END 2021-05-03 10:28 | disposition home or self-care (01) | DRG 773 ==
LOC: YASAS 14:36 → Y6N 18:32 → Y3N 18:52
PROVIDERS: ADMIT Allergy & Immunology; ATTEND Allergy & Immunology
PROC: HZ2ZZZZ Detoxification Services for Substance Abuse Treatment (ICD-10-PCS; principal; 2021-04-28)
DX: F11.23 Opioid dependence with withdrawal (principal); F10.230 Alcohol dependence with withdrawal, uncomplicated; F12.20 Cannabis dependence, uncomplicated; F17.210 Nicotine dependence, cigarettes, uncomplicated; G47.00 Insomnia, unspecified; Z56.0 Unemployment, unspecified; Z59.00 Homelessness unspecified
CPT/HCPCS: 36415; 80053; 85027; 86780; 93005; 93010; C9803; J0735; U0003; U0005